=== PATIENT | male | born 1935 | race Caucasian/White ===

== ENCOUNTER 2017-07-24 12:16 | Emergency (ER) | payer MEDICARE ==
[~2017-07-24 12:16] MED LIST: ALBU17I INH; ALLE10TA5 PO; ALPR0.5T99 PO; ASPI81 PO; DUONSOL2 NEB; ENAL5TAB98 PO; FLON0.053 EACH NARE; HIGHTAB3 PO; LEVO112T2 PO; METO10TA PO; MOME1AER2 INH; OMEP20TA PO; PANC5000 PO; SIMV20 PO; THEO1CAP5 PO
[2017-07-24 12:51] VITALS: BP 181/84; PULSE 95; RESP 18; TEMP 97.4; O2SAT 100
--- NOTE | 2017-07-24 13:52 | RADRPT ---
EXAM DATE/TIME: 07/24/2017 13:17 [place] COMPARISON: May 2015. INDICATIONS : <<Chest tightness.>> MEDICAL HISTORY : Gastroesophageal reflux disease. Hypertension. Chronic obstructive pulmonary disease. Hiatal hernia. SURGICAL HISTORY : CABG. Umbilical hernia repair. Cardiac catheterization. ENCOUNTER: Initial ACUITY: 3 days PAIN SCORE: 0/10 LOCATION: Bilateral chest FINDINGS: PA and lateral views of the chest demonstrate the lungs to be symmetrically aerated without evidence of mass, infiltrate or effusion. The cardiomediastinal contours are unremarkable. Osseous structure s are intact. CONCLUSION: 1. No active disease. Minimal linear scarring at the bases. Previous sternotomy. Laureano Virgen MD on July 24, 2017 at 13:48 Board Certified Radiologist. This report was verified electronically.
[2017-07-24] MEDS ORDERED: FLUT1SPR5 EACH NARE (14:11)
[2017-07-24] MEDS ORDERED: OMEP20TA93 PO (14:11)
[2017-07-24] MEDS ORDERED: THEO1CAP PO (14:11)
[2017-07-24] MEDS ORDERED: LEVO112T2 PO (14:11)
[2017-07-24] MEDS ORDERED: MOME1AER3 INH (14:11)
[2017-07-24] MEDS ORDERED: ALPR.5 PO (14:11)
[2017-07-24] MEDS ORDERED: ASPI81TA16 PO (14:11)
[2017-07-24] MEDS ORDERED: SIMV20TA PO (14:11)
[2017-07-24] MEDS ORDERED: REGL10TA5 PO (14:11)
[2017-07-24] MEDS ORDERED: LORA-650 PO (14:11)
[2017-07-24] MEDS ORDERED: ALBU6.7H INH (14:11)
[2017-07-24] MEDS ORDERED: ALBU0.08 NEB (14:11)
[2017-07-24] MEDS ORDERED: CREON12 PO (14:11)
--- NOTE | 2017-07-24 14:37 | PD ---
HPI Chief Complaint: Chest Pain Time Seen by Provider: 13:38 Travel History International Travel<30 days: No Contact w/Intl Traveler<30days: No Traveled to known affect area: No History of Present Illness HPI 82-year-old man who presents to the emergency department complaining of chest pain. He has a history of multiple medical problems including CAD with a history of CABG, and COPD. He follows with Dr. Staton. He has had intermittent chest pressure for the past 2-3 days. Last anywhere from minutes to hours. He has no associated nausea vomiting shortness of breath or lower extremity edema. He has a history of a CABG in the remote past. He was seen for chest pain about a year or so ago was seen in the chest pain center had a negative stress test. He otherwise had been feeling generally well and healthy. History Past Medical History Narrative Medical CAD, [place], CABG Hypertension Hyperlipidemia COPD GERD Hiatal hernia OA PNEUMOCCOCAL Vaccine (Year): 1 Social History Alcohol Use: Yes (RARE) Tobacco Use: Yes (STOPPED SMOKING IN 1993) Allergies-Medications (Allergen,Severity, Reaction): Coded Allergies: No Known Allergies (Verified Allergy, Unknown, 07/24/17) Reported Meds & Prescriptions Reported Meds & Active Scripts Active Reported Albuterol Neb (Albuterol Sulfate) 2.5 Mg/3 Ml Neb 2.5 Mg NEB Q4HR NEB PRN Flonase Nasal Robinson (Fluticasone Nasal Robinson) 50 Mcg/Act Robinson 1 Robinson EACH NARE HS Asmanex Hfa 13 GM Inh (Mometasone 13 GM Inh) 200 Mcg/Act Inh 2 Puff INH HS Aspirin Adult Low Strength (Aspirin) 81 Mg Tabdr 81 Mg PO DAILY Allergy Relief (Loratadine) 10 Mg Tab 10 Mg PO DAILY Proventil Hfa 6.7 GM Inh (Albuterol Sulfate) 90 Mcg/Act Aer 2 Puff INH Q6H PRN Omeprazole 20 Mg Tab 20 Mg PO DAILY Simvastatin 20 Mg Tab 20 Mg PO HS Xanax (Alprazolam) 0.5 Mg Tab 0.5 Mg PO HS PRN Bol[place]ar-24 (Theophylline) Unknown Strength Cap 1 Tab PO DAILY Reglan (Metoclopramide HCl) 10 Mg Tab 10 Mg PO HS Levothyroxine (Levothyroxine Sodium) 112 Mcg Tab 112 Mcg PO DAILY Creon (Amylase/Lipase/Protease) 12,000-38,000-60,000 Units Cap 1 Cap PO TIDPC Review of Systems Except as stated in HPI: all other systems reviewed are Neg Physical Exam Narrative GENERAL: Well-appearing 82-year-old man, no acute distress. SKIN: Focused skin assessment warm/dry. HEAD: Atraumatic. Normocephalic. EYES: Pupils equal and round. No scleral icterus. No injection or drainage. ENT: No nasal bleeding or discharge. Mucous membranes pink and moist. NECK: Trachea midline. No JVD. CARDIOVASCULAR: Regular rate and rhythm. No murmur appreciated. RESPIRATORY: No accessory muscle use. Clear to auscultation. Breath sounds equal bilaterally. GASTROINTESTINAL: Abdomen soft, non-tender, nondistended. Hepatic and splenic margins not palpable. MUSCULOSKELETAL: No obvious deformities. No clubbing. No cyanosis. No edema. NEUROLOGICAL: Awake and alert. No obvious cranial nerve deficits. Motor grossly within normal limits. Normal speech. PSYCHIATRIC: Appropriate mood and affect; insight and judgment normal. Data Data Last Documented VS Vital Signs Date Time Temp Pulse Resp B/P (MAP) Pulse Ox O2 Delivery O2 Flow Rate FiO2 07/24/17 13:38 79 16 100 Room Air 07/24/17 12:51 97.4 181/84 (116) Orders Orders Electrocardiogram (07/24/17 12:54) B-Type Natriuretic Peptide (07/24/17 12:54) Ckmb (Isoenzyme) Profile (07/24/17 12:54) Complete Blood Count With Diff (07/24/17 12:54) Comprehensive Metabolic Panel (07/24/17 12:54) Magnesium (Mg) (07/24/17 12:54) Prothrombin Time / Inr (Pt) (07/24/17 12:54) Act Partial Throm Time (Ptt) (07/24/17 12:54) Troponin I (07/24/17 12:54) Lipase (07/24/17 12:54) Chest, Pa & Lat (07/24/17 12:54) CKMB (07/24/17 14:10) CKMB% (07/24/17 14:10) Labs Laboratory Tests Test 07/24/17 14:10 White Blood Count 4.5 TH/MM3 Red Blood Count 3.87 MIL/MM3 Hemoglobin 12.4 GM/DL Hematocrit 34.6 % Mean Corpuscular Volume 89.3 FL Mean Corpuscular Hemoglobin 32.1 PG Mean Corpuscular Hemoglobin Concent 35.9 % Red Cell Distribution Width 14.2 % Platelet Count 177 TH/MM3 Mean Platelet Volume 8.3 FL Neutrophils (%) (Auto) 71.1 % Lymphocytes (%) (Auto) 18.8 % Monocytes (%) (Auto) 7.8 % Eosinophils (%) (Auto) 1.7 % Basophils (%) (Auto) 0.6 % Neutrophils # (Auto) 3.2 TH/MM3 Lymphocytes # (Auto) 0.9 TH/MM3 Monocytes # (Auto) 0.4 TH/MM3 Eosinophils # (Auto) 0.1 TH/MM3 Basophils # (Auto) 0.0 TH/MM3 CBC Comment DIFF FINAL Differential Comment Prothrombin Time 11.7 SEC Prothromb Time International Ratio 1.2 RATIO Activated Partial Thromboplast Time 25.2 SEC Blood Urea Nitrogen 16 MG/DL Creatinine 1.05 MG/DL Random Glucose 100 MG/DL Total Protein 7.7 GM/DL Albumin 4.2 GM/DL Calcium Level 9.3 MG/DL Magnesium Level 2.2 MG/DL Alkaline Phosphatase 81 U/L Aspartate Amino Transf (AST/SGOT) 15 U/L Alanine Aminotransferase (ALT/SGPT) 22 U/L Total Bilirubin 0.2 MG/DL Sodium Level 140 MEQ/L Potassium Level 4.7 MEQ/L Chloride Level 105 MEQ/L Carbon Dioxide Level 28.9 MEQ/L Anion Gap 6 MEQ/L Estimat Glomerular Filtration Rate 68 ML/MIN Total Creatine Kinase 144 U/L Creatine Kinase MB 3.1 NG/ML Troponin I LESS THAN 0.02 NG/ML B-Type Natriuretic Peptide 36 PG/ML Lipase 206 U/L [facility] Medical Decision Making Medical Screen Exam Complete: Yes Emergency Medical Condition: Yes Interpretation(s) My review of EKG: Normal sinus rhythm at a rate of 87, right bundle branch block , normal axis, no definite evidence of acute ischemia. Differential Diagnosis ACS, chest pain, chest wall pain, PE, anxiety, other Narrative Course Medical decision making Is an 82-year-old man presents to the emergency department waiting of chest pain , little worse than the left, pressure-like, since a medical history of CAD. Looks well now. Probably benefit from serial cardiac enzymes. Will check labs , chest pain center. I do not think he has a PE or dissection. Looks otherwise well. FINAL: It is an 82-year-old man, moderate risk for ACS. He is moderately suggestive and he certainly has history of findings. Initial workup is negative. Had a long discussion with the patient. 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 Discussed that he is at moderate risk for ACS including a probable 10% risk of major adverse cardiac events in the next 6 weeks or so. 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 He really would like to go home, follow up with Dr. Staton. I recommended a stay for provocative testing and stress test. He did this last year. After extensive discussion of the risks and benefits, we decided to allow him to be discharged and to follow-up with Dr. Staton however he agrees to return immediately to the emergency department if he has any recurrence of his symptoms. I think this is agreeable considering his strong desire to be at home with his who is severely ill. Diagnosis Primary Impression: Atypical chest pain Patient Instructions: General Instructions Additional Instructions: Continue current medications. Follow with Dr. Staton. Return immediately to the emergency department for any recurrent or worsening symptoms. Med/Other Pt SpecificInfo: No Change to Meds Disposition: 01 DISCHARGE HOME Condition: Stable Brendan Workman MD Jul 24, 2017 14:37
[2017-07-24 14:48] LABS: AUTOMATED NEUTROPHIL # 3.2 TH/MM3 (1.8-7.7); BASOPHIL % 0.6 % (0.0-2.0); EOSINOPHIL # 0.1 TH/MM3 (0-0.4); EOSINOPHIL % 1.7 % (0.0-4.0); HEMATOCRIT 34.6 % (39.0-51.0); HEMOGLOBIN 12.4 GM/DL (13.0-17.0); LYMPH % 18.8 % (9.0-44.0); LYMPHOCYTE # 0.9 TH/MM3 (1.0-4.8); MEAN CELL VOLUME 89.3 FL (80.0-100.0); MEAN CORPUSCULAR HEMOGLOBIN 32.1 PG (27.0-34.0); MEAN CORPUSCULAR HGB CONC 35.9 % (32.0-36.0); MEAN PLATELET VOLUME 8.3 FL (7.0-11.0); MONO % 7.8 % (0.0-8.0); MONOCYTE # 0.4 TH/MM3 (0-0.9); NEUT % 71.1 % (16.0-70.0); PLATELET COUNT 177 TH/MM3 (150-450); RED BLOOD COUNT 3.87 MIL/MM3 (4.50-5.90); RED CELL DISTRIBUTION WIDTH 14.2 % (11.6-17.2); WHITE BLOOD COUNT 4.5 TH/MM3 (4.0-11.0)
[2017-07-24 15:00] LABS: INTERNATIONAL NORMALIZED RATIO 1.2 RATIO; PROTHROMBIN TIME - PATIENT 11.7 SEC (9.8-11.6)
[2017-07-24 15:02] LABS: ALBUMIN 4.2 GM/DL (3.4-5.0); AST (GOT) 15 U/L (15-37); BICARBONATE 28.9 MEQ/L (21.0-32.0); BLOOD UREA NITROGEN 16 MG/DL (7-18); CALCIUM 9.3 MG/DL (8.5-10.1); CHLORIDE 105 MEQ/L (98-107); CREATININE 1.05 MG/DL (0.60-1.30); GLOMERULAR FILTRATION RATE 68 ML/MIN (>89); GLUCOSE,RANDOM 100 MG/DL (74-106); MAGNESIUM 2.2 MG/DL (1.5-2.5); SODIUM (NA) 140 MEQ/L (136-145)
[2017-07-24 15:17] LABS: ALKALINE PHOSPHATASE 81 U/L (45-117); ALT (GPT) 22 U/L (12-78); TOTAL BILIRUBIN ADULT 0.2 MG/DL (0.2-1.0); TOTAL PROTEIN 7.7 GM/DL (6.4-8.2); TROPONIN I LESS THAN 0.02 NG/ML (0.02-0.05)
[2017-07-24 16:25] VITALS: BP 124/77; TEMP 97.8
--- NOTE | 2017-07-25 23:49 | EKG ---
Date Performed: 07/24/2017 Time Performed: 12:58:01 PTAGE: 82 years EKG: Sinus rhythm RIGHT BUNDLE BRANCH BLOCK ABNORMAL ECG NO PREVIOUS TRACING DOCTOR: Kameron Cristobal Interpretating Date/Time 07/25/2017 23:46:00
== END 2017-07-24 16:25 | disposition home or self-care (01) ==
LOC: NEPC 12:16
DX: R07.89 Other chest pain (principal); E78.5 Hyperlipidemia, unspecified; J84.10 Pulmonary fibrosis, unspecified; I10 Essential (primary) hypertension; J44.9 Chronic obstructive pulmonary disease, unspecified; K21.9 Gastro-esophageal reflux disease without esophagitis; K44.9 Diaphragmatic hernia without obstruction or gangrene; Z79.899 Other long term (current) drug therapy; Z87.891 Personal history of nicotine dependence; Z99.81 Dependence on supplemental oxygen
CPT/HCPCS: 71046; 80053; 82550; 82552; 83690; 83735; 83880; 84484; 85025; 85610; 85730; 93005; 99285